=== PATIENT | female | born 1995 | race Caucasian/White ===

== ENCOUNTER → 2018-10-10 16:03 | Outpatient (CLI) | payer OTHER, SELFPAY ==
--- NOTE | 2018-10-10 16:07 | DI.MRI.S_ITS ---
PROCEDURE: MR KNEE LT WO CON INDICATIONS: CHRONIC BILATERAL KNEE PAIN TECHNIQUE: Noncontrast sagittal PD fast spin echo and T2 fast spin echo with fat saturation, sagittal 3-D FLASH with fat saturation; coronal T1 spin echo and PD fast spin echo with fat saturation, and axial PD fast spin echo with fat saturation through the knee. COMPARISON: [facility], MR, MR KNEE RT WO CON, 10/10/2018, 16:23. FINDINGS: Image quality: Excellent. Menisci: The medial and lateral menisci demonstrate normal morphology and internal signal. The meniscal root ligaments appear intact. Cruciate ligaments: The anterior and posterior cruciate ligaments appear intact. Medial structures: The medial collateral ligament appears intact. The posterior oblique ligament, semimembranosus tendon insertions, oblique popliteal ligament, and meniscocapsular junction appear intact. Visualized portions of the pes anserinus tendons appear normal. No abnormal bursal fluid. Lateral structures: The lateral collateral ligament, long and short heads of the biceps femoris tendon appear intact. The popliteus tendon appears normal; the popliteofibular ligament appears intact. The posterosuperior and anteroinferior popliteomeniscal fascicles appear intact. The arcuate and fabellofibular ligaments appear intact, on either side of the lateral inferior geniculate artery. Iliotibial band appears normal. Anterior structures: Prepatellar and superficial infrapatellar subcutaneous edema/fluid. The quadriceps and patellar tendons appear intact although there is low-grade distal patellar tendinosis. Patellar alignment is normal. No femoral trochlear dysplasia or ventral trochlear prominence. No edema in the infrapatellar fat pad. Bones and cartilage: No bone marrow contusions or fractures. The cartilage of the medial and lateral femorotibial compartments appears grossly intact. 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 Joint space: There is physiologic knee joint fluid. No Márquez's cyst. 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 Dictated by: Aron Abraham M.D. on 10/11/2018 at 9:31 Approved by: Aron Abraham M.D. on 10/11/2018 at 9:34
--- NOTE | 2018-10-10 16:07 | DI.MRI.S_ITS ---
PROCEDURE: MR KNEE RT WO CON INDICATIONS: RIGHT KNEE PAIN TECHNIQUE: Noncontrast sagittal PD fast spin echo and T2 fast spin echo with fat saturation, sagittal 3-D FLASH with fat saturation; coronal T1 spin echo and PD fast spin echo with fat saturation, and axial PD fast spin echo with fat saturation through the knee. COMPARISON: None. FINDINGS: Image quality: Excellent. Menisci: The medial and lateral menisci demonstrate normal morphology and internal signal. The meniscal root ligaments appear intact. Incidental lateral meniscal flounce on image 9 series 8 Cruciate ligaments: The anterior and posterior cruciate ligaments appear intact. Medial structures: The medial collateral ligament appears intact. The posterior oblique ligament, semimembranosus tendon insertions, oblique popliteal ligament, and meniscocapsular junction appear intact. Visualized portions of the pes anserinus tendons appear normal. No abnormal bursal fluid. Lateral structures: The lateral collateral ligament, long and short heads of the biceps femoris tendon appear intact. The popliteus tendon appears normal; the popliteofibular ligament appears intact. The posterosuperior and anteroinferior popliteomeniscal fascicles appear intact. The arcuate and fabellofibular ligaments appear intact, on either side of the lateral inferior geniculate artery. Iliotibial band appears normal. Anterior structures: The quadriceps and patellar tendons appear intact. However there is low grade distal patellar tendinosis. Adjacent pretibial subcutaneous edema. Thickening of the lateral patellofemoral ligament without complete rupture (image 11 series 6) Patellar alignment is normal. No femoral trochlear dysplasia or ventral trochlear prominence. No edema in the infrapatellar fat pad. Bones and cartilage: No focal marrow contusion or discrete low signal fracture line. Within the medial compartment, no cartilage defect Within the lateral compartment, no focal cartilage defect Within the patellofemoral compartment, mild surface fraying of the cartilage overlying the lateral patellar facet Joint space: There is physiologic knee joint fluid. No Márquez's cyst. Normal appearing synovial plicae are incidentally noted. IMPRESSION: Mild patellofemoral chondromalacia. Thickening of the lateral patellofemoral ligament suggestive of sprain although this finding technically age-indeterminate. Low-grade distal patellar tendinosis. Dictated by: Aron Abraham M.D. on 10/11/2018 at 8:40 Approved by: Aron Abraham M.D. on 10/11/2018 at 8:48
== END ==
PROVIDERS: Visit Provider Physician Assistant
DX: M22.42 Chondromalacia patellae, left knee (principal); M25.562 Pain in left knee; M22.41 Chondromalacia patellae, right knee; M25.561 Pain in right knee
CPT/HCPCS: 73721